=== PATIENT | male | born 1940 | race Caucasian/White ===

== ENCOUNTER 2022-10-31 12:18 | Day surgery (SDC) | payer MEDICARE ==
[~2022-10-31 12:18] MED LIST: Iopamidol-M 200 41% 10 ML VIAL FS ONE
[2022-10-31] MEDS ORDERED: Lidocaine 1% PF 5 ML VIAL ONE (12:56)
[2022-10-31] MEDS ORDERED: Sodium Bicarbonate 2.5 MEQ/5 ML VIAL ONE (12:56)
== END 2022-10-31 14:45 | disposition home or self-care (01) ==
LOC: CSHRAD 12:18 → EDSTATUS 13:00 → CSHRAD 14:45
PROVIDERS: ATTEND Neurological Surgery
PROC: B02 Imaging, Central Nervous System, Computerized Tomography (CT Scan) (ICD-10-PCS; principal; 2022-10-31)
DX: M51.36 Other intervertebral disc degeneration, lumbar region (principal)
CPT/HCPCS: 62304; 72132; Q9966